=== PATIENT | male | born 1995 | race Caucasian/White ===

== ENCOUNTER 2018-07-16 12:51 | Emergency (ER) | payer OTHER ==
[~2018-07-16] VITALS: Ht 165.1 cm; Wt 77.1 kg
[2018-07-16 13:00] VITALS: BP 121/67
--- NOTE | 2018-07-16 13:04 | NUR ---
PT AMBULATED TO ED BED 12
[2018-07-16] MEDS ORDERED: DICYCLOMINE HCL LIQUID 20 MG, ALUMINUM HYD/MAG/SIMETHICONE 30 ML, LIDOCAINE VISCOUS 2% ... PO ONE ×3 (13:20)
[2018-07-16] MEDS ORDERED: KETOROLAC 30 MG/ML VIAL IM ONE (13:20)
[2018-07-16] MEDS ORDERED: ONDANSETRON 4 MG ODT PO ONE (13:20)
[2018-07-16 13:39] LABS: BASOPHILS % (AUTO) 0.2 % (0.0-2.0); EOSINOPHILS % (AUTO) 0.2 % (0.0-4.0); HEMATOCRIT 47.7 % (36-52); LYMPHOCYTES # (AUTO) 1.2 K/uL (2.0-11.5); LYMPHOCYTES % (AUTO) 7.7 % (20.5-51.1); MEAN CORPUSCULAR HEMOGLOBIN 30 pg (27-31); MEAN CORPUSCULAR HGB CONC 34 g/dL (33-37); MONOCYTES # (AUTO) 0.8 K/uL (0.8-1.0); MONOCYTES % (AUTO) 4.9 % (1.7-9.3); NEUTROPHILS # (AUTO) 13.5 K/uL (1.8-7.7); PLATELET COUNT (AUTO) 278 K/uL (140-450); RED CELL DISTRIBUTION WIDTH 13.3 % (11.6-13.7); WHITE BLOOD COUNT (AUTO) 15.5 K/uL (4.8-10.8)
[2018-07-16 13:57] LABS: ALBUMIN 4.8 g/dL (3.4-5.0); ANION GAP 19.2 (8-16); CARBON DIOXIDE 24.8 mmol/L (21-32); TOTAL BILIRUBIN 0.5 mg/dL (0.0-1.0)
--- NOTE | 2018-07-16 14:23 | NUR ---
Patient discharged with v/s stable. Written and verbal after care instructions given and explained. Patient alert, oriented and verbalized understanding of instructions. Ambulatory with steady gait. All questions addressed prior to discharge. ID band removed. Patient advised to follow up with PMD. Rx of zofran/mylanta given. Patient educated on indication of medication including possible reaction and side effects. Opportunity to ask questions provided and answered.
[2018-07-16 14:24] VITALS: BP 111/65
== END 2018-07-16 14:23 | disposition home or self-care (01) ==
LOC: MED 12:51
DX: K29.00 Acute gastritis without bleeding (principal)
CPT/HCPCS: 36415; 80053; 83690; 85025; 96372; 99283; J1885; Q0162

== ENCOUNTER 2019-01-23 21:32 | Emergency (ER) | payer OTHER ==
[~2019-01-23] VITALS: Ht 175.3 cm; Wt 73.2 kg
[2019-01-23 21:55] VITALS: BP 122/49
--- NOTE | 2019-01-23 22:05 | NUR ---
PT AMBULATES TO LOBBY WITH STEADY GAIT. AWAITING AVAILABLE BED.
--- NOTE | 2019-01-23 22:20 | NUR ---
PT AMBULATED TO ER BED 03
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
--- NOTE | 2019-01-23 23:33 | NUR ---
PT SITTING IN BED GIRLFRIEND AT BEDSIDE. NO SIGNS OF DISTRESS NOTED. WAITING TO BE SEEN BY ERMD
--- NOTE | 2019-01-23 23:38 | NUR ---
ERMD AT BEDSIDE
[2019-01-24 01:31] VITALS: BP 103/77
--- NOTE | 2019-01-24 01:31 | NUR ---
PT DISCHARGED WITH PAPERWORK. RX SARA BURR. EDUCATED PT REGARDING MEDICATIONS AND S/E. EDUCATED PT REGARDING D/C DIAGNOSIS AND INSTRUCTIONS. PT VERBALIZED UNDERSTANDING OF TEACHING. TOLD PT TO FOLLOW UP WITH PCP AND WHEN TO RETURN TO ED. PT VSS. ALL QUESTIONS ANSWERED.
== END 2019-01-24 01:31 | disposition home or self-care (01) ==
LOC: MED 21:32
DX: T20.20XA Burn of second degree of head, face, and neck, unspecified site, initial encounter (principal); T31.0 Burns involving less than 10% of body surface; X19.XXXA Contact with other heat and hot substances, initial encounter; Y93.89 Activity, other specified; Y92.89 Other specified places as the place of occurrence of the external cause; Y99.8 Other external cause status
CPT/HCPCS: 99283

== ENCOUNTER 2020-06-30 11:19 | Emergency (ER) | payer OTHER ==
[~2020-06-30] VITALS: Ht 175.3 cm; Wt 81.6 kg
[2020-06-30 11:29] VITALS: BP 121/65
--- NOTE | 2020-06-30 11:32 | NUR ---
Ambulated to bed 6
--- NOTE | 2020-06-30 11:39 | NUR ---
25 y/o M coming in from home with c/c Right shoulder pain. Patient presents A&Ox4, ambulatory and states he was at work day lifting heavy metal objects and felt his right shoulder "lock up." Patient states he is unable to move right shoulder, describes pain as 10/10, sharp/constant, non-radiating pain. Patient delines any medications prior to arrival. Patient states swelling and bruising since Tuesday. No bruising, redness, swelling, warmth noted from right shoulder. +CMS. Pt placed onto BP cuff/pulse ox. Bed locked in lowest position, side rails x1. PMH/Meds: Denies NKA Sx: Denies
--- NOTE | 2020-06-30 12:24 | NUR ---
screening tech at pt bedside.
[2020-06-30] MEDS ORDERED: KETOROLAC 60 MG/2 ML VIAL IM ONE (13:20)
[2020-06-30] MEDS ORDERED: METH750T5 PO (13:26)
[2020-06-30] MEDS ORDERED: NAPR-54 PO (13:26)
[2020-06-30 13:40] VITALS: BP 121/65
--- NOTE | 2020-06-30 13:40 | NUR ---
Patient discharged with v/s stable. Written and verbal after care instructions given and explained. Patient alert, oriented and verbalized understanding of instructions. Ambulatory with steady gait. All questions addressed prior to discharge. ID band removed. Patient advised to follow up with PMD. Rx of NAPROXYN 500MG PO PRN PAIN, AND ROBAXIN 750MG TID PRN PAIN given. Patient educated on indication of medication including possible reaction and side effects. Opportunity to ask questions provided and answered.
== END 2020-06-30 13:40 | disposition home or self-care (01) ==
LOC: MED 11:19
DX: M25.511 Pain in right shoulder (principal); Z79.899 Other long term (current) drug therapy
CPT/HCPCS: 73030; 96372; 99283; J1885